=== PATIENT | female | born 1995 | race African-American/Black ===

== ENCOUNTER 2022-03-26 08:22 | Emergency (ER) | payer OTHER ==
[~2022-03-26] VITALS: Ht 162.6 cm; Wt 77.0 kg
[2022-03-26 08:26] VITALS: BP 130/100
[2022-03-26] MEDS ORDERED: AMOXICILLIN/POTASSIUM CLAVULANATE 875/125MG TAB PO ONE (08:45)
[2022-03-26] MEDS ORDERED: BACITRACIN ZINC OINT UDPKT TOP ONE (08:45)
[2022-03-26] MEDS ORDERED: LIDOCAINE HCL/EPINEPHRINE 1%-EPI 1:100,000 20 ML VIAL INFIL ONE (08:45)
[2022-03-26] MEDS ORDERED: AMOX-424 MT (09:27)
[2022-03-26] MEDS ORDERED: MUPI1OIN4 TP (09:28)
== END 2022-03-26 16:43 | disposition home or self-care (01) ==
LOC: ER 08:22
DX: S51.811A Laceration without foreign body of right forearm, initial encounter (principal); J45.909 Unspecified asthma, uncomplicated; W54.0XXA Bitten by dog, initial encounter; Y93.89 Activity, other specified; Y92.89 Other specified places as the place of occurrence of the external cause; Y99.8 Other external cause status
CPT/HCPCS: 12004; 99283; J3490